=== PATIENT | male | born 1955 | race Caucasian/White ===

== ENCOUNTER 2019-04-21 08:56 | Day surgery (SDC) | payer BC, OTHER ==
--- NOTE | 2019-04-21 07:44 | HP ---
DATE OF SURGERY: 04/21/2019 ANTICIPATED PROCEDURE: Cholecystectomy. HISTORY OF PRESENT ILLNESS: The patient has symptomatic cholelithiasis presents for cholecystectomy. PAST MEDICAL HISTORY: ALLERGIES: NONE. MEDICATIONS: Antihypertensive, anti-cholesterol. PAST SURGICAL HISTORY: None. SOCIAL HISTORY: Half a can of snuff per day. ETOH a day. FAMILY HISTORY: Negative. REVIEW OF SYSTEMS: Diabetes, hypertension. PHYSICAL EXAMINATION: VITAL SIGNS: Normal. CHEST: Clear. COR: Regular. ABDOMEN: Satisfactory. IMPRESSION: Symptomatic cholelithiasis. PLAN: Laparoscopic cholecystectomy.
[~2019-04-21 08:56] MED LIST: Lactated Ringers 1,000 ML IV ONE; Sensorcaine 0.25% 10 ML ONE
[2019-04-21] MEDS ORDERED: Quelicin Fliptop 200 MG/10 ML ONE (09:07)
[2019-04-21] MEDS ORDERED: Zemuron 100 MG/10 ML ONE (09:07)
[2019-04-21] MEDS ORDERED: SUBLIMAZE 100 MCG/2 ML ONE ×2 (09:07→11:08)
[2019-04-21] MEDS ORDERED: DIPRIVAN 200 MG/20 ML IV ONE (09:07)
[2019-04-21] MEDS ORDERED: Lactated Ringers 1,000 ML IV ONE (09:17)
[2019-04-21] MEDS ORDERED: MEFOXIN 2 GM PREMIX** 2 GM/50 ML ML IV ONE (09:18)
[2019-04-21] MEDS ORDERED: Lactated Ringers 1,000 ML IV SCH (09:30)
[2019-04-21] MEDS ORDERED: MEFOXIN 2 GM PREMIX** 2 GM/50 ML ML IV SCH (10:00)
[2019-04-21] MEDS ORDERED: BRIDION 200MG/2ML IV ONE (10:31)
[2019-04-21] MEDS ORDERED: Zofran 4 MG/2 ML VIAL ONE (10:31)
[2019-04-21] MEDS ORDERED: TORAdol 30 mg Injection ONE (10:31)
[2019-04-21] MEDS ORDERED: Decadron 4 MG INJ ONE (10:31)
--- NOTE | 2019-04-21 11:02 | OP ---
SURGERY DATE/TIME: 04/21/2019 0954 PREOPERATIVE DIAGNOSIS: Symptomatic cholelithiasis. POSTOPERATIVE DIAGNOSIS: Symptomatic cholelithiasis. PROCEDURE: Laparoscopic cholecystectomy. SURGEON: Ayad Bailey M.D. ANESTHESIA: General. COMPLICATIONS: None. CONDITION: Stable. INDICATION: A patient with symptomatic cholelithiasis. DESCRIPTION OF PROCEDURE AND FINDINGS: Taken to surgery. General anesthetic, routine prep and drape. There was a very minimal defect at the umbilicus. Veress needle placed through this. Insufflating pressure 14. Four - 5's. Good visualization. Cystic duct defined. Cystic artery defined. Both structures triply clipped and transected. Clips noted across and well approximated. Gallbladder rolled out of gallbladder fossa. The gallbladder delivered through the umbilical port. It was widened slightly. Hole closure two [id number] sutures were placed at the umbilicus with 0 Vicryl and closed. Looked satisfactory. Held well and seemed to be well together. Upper abdomen was totally dry. CO2 was turned off. CO2 was exsufflated. Skin closed with 4-0 Vicryl and Steri-Strips. The patient tolerated the procedure satisfactorily.
[2019-04-21] MEDS ORDERED: APRESOLINE 20 MG/ML INJ ONE (11:14)
[2019-04-21] MEDS ORDERED: NORCO 5/325 MG PO ONE (11:49)
[2019-04-21] MEDS ORDERED: NORCO 5/325 MG ONE (11:52)
[2019-04-21 12:46] VITALS: BP 178/95; PULSE 88; O2SAT 95
== END 2019-04-21 12:47 | disposition home or self-care (01) ==
LOC: SDC 08:56
PROVIDERS: ATTEND Surgery
DX: K80.20 Calculus of gallbladder without cholecystitis without obstruction (principal); I10 Essential (primary) hypertension; E11.9 Type 2 diabetes mellitus without complications
CPT/HCPCS: 82962; 88304; J0330; J0360; J0694; J1100; J1885; J2405; J2704; J3010; A9270-GY

== ENCOUNTER 2020-10-11 07:56 | Day surgery (SDC) | payer BC ==
--- NOTE | 2020-10-08 09:40 | HP ---
DATE OF SURGERY: 10/11/2020 HISTORY OF PRESENT ILLNESS: The patient is a 65 year-old male who presented with no history of colonoscopy. Denies any GI signs or symptoms at this time. Reports that his father had colon cancer and at age 83 or 84. He was diagnosed at age 71. PAST MEDICAL HISTORY: Diabetes. Hyperlipidemia. PAST SURGICAL HISTORY: Laparoscopic cholecystectomy. ALLERGIES: IV CONTRAST. MEDICATIONS: Januvia, statin. FAMILY HISTORY: Colon cancer. Diabetes. SOCIAL HISTORY: Chewing tobacco. REVIEW OF SYSTEMS: CONSTITUTIONAL: Denies fever or chills. CHEST: Denies shortness of breath. CVS: Denies chest pain. ABDOMEN: Denies abdominal pain, nausea, vomiting, diarrhea, constipation or rectal bleeding. PHYSICAL EXAMINATION: GENERAL: No acute distress. CHEST: Nonlabored. No shortness of breath. CVS: Regular rate and rhythm. ABDOMEN: Soft, nontender to palpation. EXTREMITIES: No edema. NEUROLOGIC: Alert. PSYCHIATRIC: Appropriate. IMPRESSION: Screening colonoscopy and positive family history of colon cancer. PLAN: Colonoscopy with Dr. Ayad Bailey. As dictated by Nilsa Mason NP.
[~2020-10-11 07:56] MED LIST changes: -Lactated Ringers 1,000 ML IV ONE; +Lactated Ringers 1,000 ML IV SCH; -Sensorcaine 0.25% 10 ML ONE
[2020-10-11] MEDS ORDERED: Lactated Ringers 1,000 ML IV ONE (08:00)
[2020-10-11] MEDS ORDERED: Versed 2 MG/2 ML Injection ONE (10:40)
[2020-10-11] MEDS ORDERED: DIPRIVAN 200 MG/20 ML IV ONE ×2 (10:40→10:50)
[2020-10-11 11:30] VITALS: O2SAT 97
[2020-10-11 11:48] VITALS: PULSE 74
[2020-10-11 11:54] VITALS: BP 138/70
--- NOTE | 2020-10-11 14:29 | OP ---
SURGERY DATE/TIME: 10/11/2020 1041 PREOPERATIVE DIAGNOSIS: The patient has a strong family history of colon cancer. POSTOPERATIVE DIAGNOSIS: Normal examination except for moderate internal and external hemorrhoids. Anticipated follow up five years because of his family history. PROCEDURE: Colonoscopy complete to cecum. SURGEON: Ayad Bailey M.D. ANESTHESIA: MAC. COMPLICATIONS: None. CONDITION: Stable. INDICATION: A patient requiring colonoscopy. DESCRIPTION OF PROCEDURE: Taken to endoscopy. Left lateral decubitus position. Anal digital examination satisfactory. Scope introduced. Scope advanced to the cecum. Base of the cecum, ileocecal valve, appendiceal orifice normal. Ascending, hepatic, transverse, splenic, descending, sigmoid, rectum, anus except for moderate internal and external hemorrhoids is normal. Scope advanced to the cecum and then air was suctioned on the way out. The patient tolerated the procedure well. Anticipated procedure five years because of the family history.
== END 2020-10-11 11:55 | disposition home or self-care (01) ==
LOC: SDC 07:56
PROVIDERS: ATTEND Surgery
DX: Z12.11 Encounter for screening for malignant neoplasm of colon (principal); Z80.0 Family history of malignant neoplasm of digestive organs; K64.4 Residual hemorrhoidal skin tags; K64.8 Other hemorrhoids; E11.9 Type 2 diabetes mellitus without complications; E78.5 Hyperlipidemia, unspecified; Z79.899 Other long term (current) drug therapy
CPT/HCPCS: 82947; J2250; J2704